=== PATIENT | male | born 1985 | race American Indian/Alaskan Native ===

== ENCOUNTER 2018-06-23 11:45 | Emergency (ER) | payer OTHER ==
--- NOTE | 2018-06-23 12:20 | Emergency Department Report ---
Blank Doc - Documentation Documentation: This is a 32-year-old male that presents with neck, lower back, and left shoul dion pain x3 weeks. Stated symptoms getting worse. Denies any injuries. This initial assessment/diagnostic orders/clinical plan/treatment(s) is/are subject to change based on patient's health status, clinical progression and re- assessment by fellow clinical providers in the ED. Further treatment and workup at subsequent clinical providers discretion. Patient/guardians urged not to elope from the ED as their condition may be serious if not clinically assessed and managed. Initial orders include: 1- Patient sent to [facility] for further evaluation and treatment
[2018-06-23 12:21] VITALS: BP 126/90
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
--- NOTE | 2018-06-23 13:30 | XRay Report ---
Cervical spine 3 views: History: Pain. Findings: Normal height of vertebral bodies and intervertebral disc. Loss of cervical lordosis. Normal prevertebral soft tissue. Faint calcification at the anterior aspect of sixth cervical vertebra, may be related to old injury. Impression: No evidence of acute fracture
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
== END 2018-06-23 15:37 | disposition home or self-care (01) ==
LOC: ED 11:45
DX: M54.5 Low back pain (principal); M25.512 Pain in left shoulder; M54.2 Cervicalgia
CPT/HCPCS: 72040; 72100; 99283

== ENCOUNTER 2019-02-22 12:37 | Emergency (ER) | payer OTHER ==
--- NOTE | 2019-02-22 19:34 | Emergency Department Report ---
ED General Adult HPI - General Chief complaint: Rectal Pain Stated complaint: HEMORROIDS Time Seen by Provider: 02/22/19 19:11 Source: patient Mode of arrival: Ambulatory Limitations: No Limitations - History of Present Illness Initial comments: This is a 33-year-old male that presents to the ER with rectal pain for 6 days. Patient reports history of hemorrhoids without follow up. Pain described as itching and burning rectal pain that is worse with sitting or movement. Denies immunosuppression/HIV, anal-receptive intercourse, fever, vomiting, tarry stools, bleeding, diarrhea, abdominal pain, urinary frequency, urgency, or dysuria. Onset/Timin -: days(s) Severity scale (0 -10): 10 Quality: aching Consistency: intermittent Improves with: none Worsens with: movement, other (sitting) Associated Symptoms: denies other symptoms Treatments Prior to Arrival: other (preperation H) - Related Data Previous Rx's Medication Instructions Recorded Last Taken Type Naproxen [Naprosyn] 500 mg PO TID PRN #20 tablet 06/23/18 Unknown Rx methOCARBAMOL [Robaxin TAB] 500 mg PO TID PRN #15 tablet 06/23/18 Unknown Rx Docusate Sodium [Colace CAP] 100 mg PO BID PRN #1 bottle 02/22/19 Unknown Rx Hydrocortisone [Anucort-HC SUPPOS] 25 mg RC BID #14 supp.rect 02/22/19 Unknown Rx Pramoxine HCl [Proctofoam] 15 gm TP QID #1 foam 02/22/19 Unknown Rx Psyllium Husk [Metamucil] 0.52 gm PO DAILY #1 bottle 02/22/19 Unknown Rx Allergies Allergy/AdvReac Type Severity Reaction Status Date / Time No Known Allergies Allergy Unverified 06/23/18 11:46 ED Review of Systems ROS: Stated complaint: HEMORROIDS Other details as noted in HPI Constitutional: denies: chills, fever Respiratory: denies: cough, shortness of breath, wheezing Cardiovascular: denies: chest pain, palpitations Gastrointestinal: other (rectal pain). denies: abdominal pain, nausea, diarrhea Genitourinary: denies: urgency, dysuria Skin: denies: rash, lesions Neurological: denies: headache, weakness, paresthesias Psychiatric: denies: anxiety, depression ED Past Medical Hx - Past Medical History Previous Medical History?: No - Surgical History Past Surgical History?: No - Social History Smoking Status: Current Every Day Smoker Substance Use Type: Alcohol - Medications Home Medications: Home Medications Medication Instructions Recorded Confirmed Last Taken Type Naproxen [Naprosyn] 500 mg PO TID PRN #20 tablet 06/23/18 Unknown Rx methOCARBAMOL [Robaxin TAB] 500 mg PO TID PRN #15 tablet 06/23/18 Unknown Rx Docusate Sodium [Colace CAP] 100 mg PO BID PRN #1 bottle 02/22/19 Unknown Rx Hydrocortisone [Anucort-HC SUPPOS] 25 mg RC BID #14 supp.rect 02/22/19 Unknown Rx Pramoxine HCl [Proctofoam] 15 gm TP QID #1 foam 02/22/19 Unknown Rx Psyllium Husk [Metamucil] 0.52 gm PO DAILY #1 bottle 02/22/19 Unknown Rx ED Physical Exam - General Limitations: No Limitations General appearance: alert, in no apparent distress, obese - Respiratory Respiratory exam: Present: normal lung sounds bilaterally. Absent: respiratory distress - Cardiovascular Cardiovascular Exam: Present: regular rate, normal rhythm. Absent: systolic murmur, diastolic murmur, rubs, gallop - GI/Abdominal GI/Abdominal exam: Present: soft, normal bowel sounds. Absent: distended, tenderness, guarding, rebound, rigid - Rectal Rectal exam: Present: normal rectal tone, hemorrhoids (external hemorrhoid, ttp, skin color), normal prostate. Absent: decreased rectal tone, heme (-) stool, black stool, bloody stool, mass, prostate enlargement - Neurological Exam Neurological exam: Present: alert, oriented X3, normal gait - Psychiatric Psychiatric exam: Present: normal affect, normal mood - Skin Skin exam: Present: warm, dry, intact, normal color. Absent: rash ED Course Vital Signs 02/22/19 12:44 Temperature 98.2 F Pulse Rate 95 H Respiratory 18 Rate Blood Pressure 146/95 O2 Sat by Pulse 92 Oximetry ED Medical Decision Making - Medical Decision Making Patients history and exam most consistent with hemorrhoid as an etiology for their pain. Exam not consistent with thrombosed hemorrhoid. Patients symptoms and exam not typical for other emergent causes of rectal pain such as, but not limited to, anorectal abscess, rectal foreign body, anal fissure, anal fistula, proctitis, rectal prolapse. Start Bowel regimen, topical lidocaine, sitz bath 15min TID and after each bowel movement. Discharged with strict return precautions and follow up with primary MD within 24-48 hours for further evaluation. Critical care attestation.: If time is entered above; I have spent that time in minutes in the direct care of this critically ill patient, excluding procedure time. ED Disposition Clinical Impression: External hemorrhoids, Anal or rectal pain Disposition: TO HOME OR SELFCARE Is pt being admited?: No Condition: Stable Instructions: Hemorrhoids (ED) Additional Instructions: Sit in a warm tub of water for comfort. Stool softeners and high-fiber diet Use Hydrocortisone Acetate Suppository as directed. Follow up with a primary care doctor in 24-48 hours for further evaluation. Prescriptions: Hydrocortisone [Anucort-HC SUPPOS] 25 mg RC BID #14 supp.rect Docusate Sodium [Colace CAP] 100 mg PO BID PRN #1 bottle PRN Reason: Constipation Psyllium Husk [Metamucil] 0.52 gm PO DAILY #1 bottle Pramoxine HCl [Proctofoam] 15 gm TP QID #1 foam Referrals: BI WEBER MD [Staff Physician] - 3-5 Days [facility] [Provider Group] - 3-5 Days OLIVIA HAMILTON MD [Staff Physician] - 3-5 Days Forms: Work/School Release Form(ED) Time of Disposition: 20:06
[2019-02-22 21:20] VITALS: BP 142/87
== END 2019-02-22 20:13 | disposition home or self-care (01) ==
LOC: ED 12:37
DX: K64.4 Residual hemorrhoidal skin tags (principal); F17.200 Nicotine dependence, unspecified, uncomplicated
CPT/HCPCS: 99282

== ENCOUNTER 2020-11-08 09:05 | Emergency (ER) | payer OTHER ==
--- NOTE | 2020-11-08 10:09 | Emergency Department Report ---
ED ENT HPI - General Chief complaint: Earache Stated complaint: TOOTHACHE Source: patient Mode of arrival: Ambulatory Limitations: No Limitations - History of Present Illness Initial comments: The patient was evaluated in the emergency department for symptoms described in the history of present illness. He/she was evaluated in the context of the global COVID-19 pandemic, which necessitated consideration that the patient might be at risk for infection with the virus that causes COVID-19. Institutional protocols and algorithms that pertain to the evaluation of patients at risk for COVID-19 are in a state of rapid change based on information released by regulatory bodies including the CDC and federal and state organizations. These policies and algorithms were followed during the patient's care in the emergency department. Please note that these policies, procedures and recommendations changed on a rapid basis. 35-year-old -Portuguese male presents to the emergency room complaining of toothache for 3 days. Patient states he has not seen a dentist. He is aware that he has some bad teeth. He denies any past medical history currently takes no medications on a daily basis denies any primary care provider. States he is taking [id number] pain medicine which is not working. He does report that he has a hole in his tooth. MD complaint: tooth pain Onset/Timin -: days(s) Location: tooth # Severity: severe Quality: stabbing, sharp Consistency: constant Worsens with: none Context- Dental: history of dental caries, poor dental care - Related Data Previous Rx's Medication Instructions Recorded Last Taken Type Naproxen [Naprosyn] 500 mg PO TID PRN #20 tablet 06/23/18 Unknown Rx methOCARBAMOL [Robaxin TAB] 500 mg PO TID PRN #15 tablet 06/23/18 Unknown Rx Docusate Sodium [Colace CAP] 100 mg PO BID PRN #1 bottle 02/22/19 Unknown Rx Hydrocortisone [Anucort-HC SUPPOS] 25 mg RC BID #14 supp.rect 02/22/19 Unknown Rx Pramoxine HCl [Proctofoam] 15 gm TP QID #1 foam 02/22/19 Unknown Rx Psyllium Husk [Metamucil] 0.52 gm PO DAILY #1 bottle 02/22/19 Unknown Rx Acetaminophen/Codeine [Tylenol 1 tab PO Q6H PRN #12 tab 11/08/20 Unknown Rx /Codeine # 3 tab] Amoxicillin/Potassium Clav 1 each PO BID 7 Days #14 tablet 11/08/20 Unknown Rx [Augmentin 875-125 Tablet] Ibuprofen [Motrin 800 MG tab] 800 mg PO Q8HR PRN #30 tablet 11/08/20 Unknown Rx Allergies Allergy/AdvReac Type Severity Reaction Status Date / Time No Known Allergies Allergy Unverified 06/23/18 11:46 ED Dental HPI - General Chief complaint: Earache Stated complaint: TOOTHACHE Source: patient Mode of arrival: Ambulatory Limitations: No Limitations - Related Data Previous Rx's Medication Instructions Recorded Last Taken Type Naproxen [Naprosyn] 500 mg PO TID PRN #20 tablet 06/23/18 Unknown Rx methOCARBAMOL [Robaxin TAB] 500 mg PO TID PRN #15 tablet 06/23/18 Unknown Rx Docusate Sodium [Colace CAP] 100 mg PO BID PRN #1 bottle 02/22/19 Unknown Rx Hydrocortisone [Anucort-HC SUPPOS] 25 mg RC BID #14 supp.rect 02/22/19 Unknown Rx Pramoxine HCl [Proctofoam] 15 gm TP QID #1 foam 02/22/19 Unknown Rx Psyllium Husk [Metamucil] 0.52 gm PO DAILY #1 bottle 02/22/19 Unknown Rx Acetaminophen/Codeine [Tylenol 1 tab PO Q6H PRN #12 tab 11/08/20 Unknown Rx /Codeine # 3 tab] Amoxicillin/Potassium Clav 1 each PO BID 7 Days #14 tablet 11/08/20 Unknown Rx [Augmentin 875-125 Tablet] Ibuprofen [Motrin 800 MG tab] 800 mg PO Q8HR PRN #30 tablet 11/08/20 Unknown Rx Allergies Allergy/AdvReac Type Severity Reaction Status Date / Time No Known Allergies Allergy Unverified 06/23/18 11:46 ED Review of Systems ROS: Stated complaint: TOOTHACHE Other details as noted in HPI Comment: All other systems reviewed and negative ED Past Medical Hx - Social History Smoking Status: Current Every Day Smoker Substance Use Type: Alcohol - Medications Home Medications: Home Medications Medication Instructions Recorded Confirmed Last Taken Type Naproxen [Naprosyn] 500 mg PO TID PRN #20 tablet 06/23/18 Unknown Rx methOCARBAMOL [Robaxin TAB] 500 mg PO TID PRN #15 tablet 06/23/18 Unknown Rx Docusate Sodium [Colace CAP] 100 mg PO BID PRN #1 bottle 02/22/19 Unknown Rx Hydrocortisone [Anucort-HC SUPPOS] 25 mg RC BID #14 supp.rect 02/22/19 Unknown Rx Pramoxine HCl [Proctofoam] 15 gm TP QID #1 foam 02/22/19 Unknown Rx Psyllium Husk [Metamucil] 0.52 gm PO DAILY #1 bottle 02/22/19 Unknown Rx Acetaminophen/Codeine [Tylenol 1 tab PO Q6H PRN #12 tab 11/08/20 Unknown Rx /Codeine # 3 tab] Amoxicillin/Potassium Clav 1 each PO BID 7 Days #14 tablet 11/08/20 Unknown Rx [Augmentin 875-125 Tablet] Ibuprofen [Motrin 800 MG tab] 800 mg PO Q8HR PRN #30 tablet 11/08/20 Unknown Rx ED Physical Exam - General Limitations: No Limitations General appearance: alert, in no apparent distress - Head Head exam: Present: atraumatic, normocephalic - Eye Eye exam: Present: normal appearance - Expanded ENT Exam Expanded Teeth exam: Present: dental caries, dental tenderness #, gingival enlargement - Neck Neck exam: Present: normal inspection, full ROM - Respiratory Respiratory exam: Absent: accessory muscle use - Cardiovascular Cardiovascular Exam: Present: regular rate - Back Exam Back exam: Present: normal inspection - Neurological Exam Neurological exam: Present: alert, oriented X3, normal gait - Psychiatric Psychiatric exam: Present: normal affect, normal mood - Skin Skin exam: Present: warm, dry, intact, normal color. Absent: rash ED Course Vital Signs 11/08/20 09:28 Temperature 98.3 F Pulse Rate 75 Respiratory 16 Rate Blood Pressure 149/99 O2 Sat by Pulse 94 Oximetry ED Medical Decision Making - Medical Decision Making 35-year-old -Portuguese male presents to the emergency room complaining of toothache for 3 days. Patient states he has not seen a dentist. He is aware that he has some bad teeth. He denies any past medical history currently takes no medications on a daily basis denies any primary care provider. States he is taking [id number] pain medicine which is not working. He does report that he has a hole in his tooth. We will place patient on Augmentin 875 mg twice daily Tylenol 3 and ibuprofen 800 mg. Patient be referred to a dentist. Critical care attestation.: If time is entered above; I have spent that time in minutes in the direct care of this critically ill patient, excluding procedure time. ED Disposition Clinical Impression: Dental infection Disposition: HOME / SELF CARE / HOMELESS Is pt being admited?: No Does the pt Need Aspirin: No Condition: Stable Instructions: Dental Abscess, [id number] Additional Instructions: Complete antibiotics as prescribed. Pain medication as needed. Follow-up with a dentist. I have listed several below for your convenience. This emergency room does not do dental care. Prescriptions: Amoxicillin/Potassium Clav [Augmentin 875-125 Tablet] 1 each PO BID 7 Days #14 tablet Ibuprofen [Motrin 800 MG tab] 800 mg PO Q8HR PRN #30 tablet PRN Reason: Pain , Severe (7-10) Acetaminophen/Codeine [Tylenol /Codeine # 3 tab] 1 tab PO Q6H PRN #12 tab PRN Reason: Pain , Severe (7-10) Referrals: PRIMARY CARE,MD [Primary Care Provider] - 3-5 Days [facility] [Outside] - 3-5 Days [facility] [Outside] - 3-5 Days [facility] [Outside] - 3-5 Days Forms: Work/School Release Form(ED) Time of Disposition: 10:12
[2020-11-08 10:21] VITALS: BP 159/97
== END 2020-11-08 10:19 | disposition home or self-care (01) ==
LOC: ED 09:05
DX: K04.7 Periapical abscess without sinus (principal); F17.200 Nicotine dependence, unspecified, uncomplicated; Z72.89 Other problems related to lifestyle; Z79.899 Other long term (current) drug therapy
CPT/HCPCS: 99282